=== PATIENT | male | born 1985 | race Caucasian/White ===

== ENCOUNTER → 2017-01-06 09:04 | Outpatient (CLI) | payer OTHER ==
[2017-01-06 09:16] LABS: BASOPHILS 0.2 % (0-2); EOSINOPHILS 2.7 % (0-7); HEMATOCRIT 27.7 % (42.0-54.0); HEMOGLOBIN 8.8 g/dL (13.5-17.5); IMMATURE GRANULOCYTES 0.5 % (0-5); LYMPHOCYTES 28.3 % (15-50); MCH 27.7 pg (26.0-34.0); MCHC 31.8 g/dL (31.0-37.0); MCV 87.1 fL (80.0-100.0); MEAN PLATELET VOLUME 9.9 fL (7.4-10.4); MONOCYTES 6.4 % (2-11); NEUTROPHILS 61.9 % (40-80); PLATELET COUNT 350 10x3/uL (130-400); RBC 3.18 10x6/uL (4.20-6.10); RDW 13.9 % (11.5-14.5); WBC 8.4 10x3/uL (4.8-10.8)
[2017-01-06 09:30] LABS: CALC OSMOLALITY 274 mosm/kg (275-300); CALCIUM 8.8 mg/dL (8.5-10.1); CARBON DIOXIDE 28.4 mmol/L (21.0-32.0); CHLORIDE - SERUM 102 mmol/L (98-107); CREATININE - SERUM 0.9 mg/dL (0.6-1.3); GLUCOSE 97 mg/dL (74-106); POTASSIUM - SERUM 4.3 mmol/L (3.5-5.1); SODIUM 138 mmol/L (136-145); UREA NITROGEN 11 mg/dL (7-18); VANCOMYCIN - TROUGH 12.4 ug/mL (10.0-20.0); eGFR NON AFRICAN AMERICAN > 90 mL/min (90-120)
== END | disposition home or self-care (01) ==
LOC: D.LABREF 09:04
PROVIDERS: Orthopaedic Surgery
DX: T84.51XA Infection and inflammatory reaction due to internal right hip prosthesis, initial encounter (principal)

== ENCOUNTER → 2017-01-12 10:07 | Outpatient (CLI) | payer OTHER ==
[2017-01-12 11:18] LABS: BASOPHILS 0.4 % (0-2); EOSINOPHILS 4.1 % (0-7); HEMATOCRIT 27.2 % (42.0-54.0); HEMOGLOBIN 8.4 g/dL (13.5-17.5); IMMATURE GRANULOCYTES 0.2 % (0-5); LYMPHOCYTES 28.8 % (15-50); MCH 26.1 pg (26.0-34.0); MCHC 30.9 g/dL (31.0-37.0); MCV 84.5 fL (80.0-100.0); MEAN PLATELET VOLUME 10.5 fL (7.4-10.4); MONOCYTES 6.5 % (2-11); PLATELET COUNT 334 10x3/uL (130-400); RBC 3.22 10x6/uL (4.20-6.10); RDW 14.4 % (11.5-14.5); WBC 4.9 10x3/uL (4.8-10.8)
[2017-01-12 11:34] LABS: CREATININE - SERUM 0.9 mg/dL (0.6-1.3); VANCOMYCIN - TROUGH 11.3 ug/mL (10.0-20.0)
== END | disposition home or self-care (01) ==
LOC: D.LABREF 10:07
PROVIDERS: Pediatrics
DX: M00.9 Pyogenic arthritis, unspecified (principal)

== ENCOUNTER → 2017-01-18 10:49 | Outpatient (CLI) | payer OTHER ==
[2017-01-18 11:42] LABS: BASOPHILS 0.2 % (0-2); EOSINOPHILS 4.7 % (0-7); HEMATOCRIT 28.4 % (42.0-54.0); HEMOGLOBIN 8.5 g/dL (13.5-17.5); IMMATURE GRANULOCYTES 0.2 % (0-5); MCH 24.6 pg (26.0-34.0); MCHC 29.9 g/dL (31.0-37.0); MCV 82.3 fL (80.0-100.0); MEAN PLATELET VOLUME 10.8 fL (7.4-10.4); MONOCYTES 9.1 % (2-11); NEUTROPHILS 68.8 % (40-80); RBC 3.45 10x6/uL (4.20-6.10); RDW 15.3 % (11.5-14.5); WBC 5.1 10x3/uL (4.8-10.8)
[2017-01-18 11:50] LABS: PLATELET COUNT 260 10x3/uL (130-400)
[2017-01-18 12:00] LABS: CREATININE - SERUM 0.9 mg/dL (0.6-1.3)
== END | disposition home or self-care (01) ==
LOC: D.LABREF 10:49
PROVIDERS: Pediatrics
DX: M00.9 Pyogenic arthritis, unspecified (principal)

== ENCOUNTER 2017-01-22 14:40 | Emergency (ER) | payer OTHER | END 2017-01-22 17:10 | disposition home or self-care (01) | LOC: D.ER 14:40 | DX: M25.551 Pain in right hip (principal); W01.0XXA Fall on same level from slipping, tripping and stumbling without subsequent striking against object, initial encounter; Y93.89 Activity, other specified; Y92.019 Unspecified place in single-family (private) house as the place of occurrence of the external cause; Z96.641 Presence of right artificial hip joint; F17.200 Nicotine dependence, unspecified, uncomplicated ==

== ENCOUNTER → 2017-01-23 10:12 | Outpatient (CLI) | payer OTHER ==
[2017-01-23 13:51] LABS: BASOPHILS 0.5 % (0-2); EOSINOPHILS 11.4 % (0-7); HEMATOCRIT 28.6 % (42.0-54.0); HEMOGLOBIN 8.7 g/dL (13.5-17.5); IMMATURE GRANULOCYTES 0.5 % (0-5); MCHC 30.4 g/dL (31.0-37.0); MEAN PLATELET VOLUME 10.5 fL (7.4-10.4); MONOCYTES 15.6 % (2-11); PLATELET COUNT 251 10x3/uL (130-400); RBC 3.62 10x6/uL (4.20-6.10); RDW 15.6 % (11.5-14.5); WBC 3.9 10x3/uL (4.8-10.8)
[2017-01-23 14:13] LABS: ANION GAP 15.9 mmol/L (8-16); CREATININE - SERUM 1.2 mg/dL (0.6-1.3); POTASSIUM - SERUM 3.9 mmol/L (3.5-5.1)
== END | disposition home or self-care (01) ==
LOC: D.LABREF 10:12
PROVIDERS: Pediatrics
DX: M00.9 Pyogenic arthritis, unspecified (principal)

== ENCOUNTER → 2017-01-30 09:51 | Outpatient (CLI) | payer OTHER ==
[2017-01-30 12:59] LABS: HEMATOCRIT 31.4 % (42.0-54.0); HEMOGLOBIN 9.6 g/dL (13.5-17.5); IMMATURE GRANULOCYTES 0.4 % (0-5); LYMPHOCYTES 31.2 % (15-50); MCH 23.3 pg (26.0-34.0); MCHC 30.6 g/dL (31.0-37.0); MCV 76.2 fL (80.0-100.0); MEAN PLATELET VOLUME 10.3 fL (7.4-10.4); MONOCYTES 12.8 % (2-11); NEUTROPHILS 45.6 % (40-80); PLATELET COUNT 379 10x3/uL (130-400); RBC 4.12 10x6/uL (4.20-6.10); WBC 4.8 10x3/uL (4.8-10.8)
[2017-01-30 13:07] LABS: CALC OSMOLALITY 278 mosm/kg (275-300); CALCIUM 8.7 mg/dL (8.5-10.1); CARBON DIOXIDE 26.3 mmol/L (21.0-32.0); CHLORIDE - SERUM 104 mmol/L (98-107); CREATININE - SERUM 0.9 mg/dL (0.6-1.3); GLUCOSE 104 mg/dL (74-106); POTASSIUM - SERUM 4.5 mmol/L (3.5-5.1); SODIUM 139 mmol/L (136-145); UREA NITROGEN 15 mg/dL (7-18); VANCOMYCIN - TROUGH 14.4 ug/mL (10.0-20.0); eGFR NON AFRICAN AMERICAN > 90 mL/min (90-120)
== END | disposition home or self-care (01) ==
LOC: D.LABREF 09:51
PROVIDERS: Pediatrics
DX: M00.9 Pyogenic arthritis, unspecified (principal)

== ENCOUNTER → 2017-02-06 09:19 | Outpatient (CLI) | payer OTHER ==
[2017-02-06 11:48] LABS: BASOPHILS 0.5 % (0-2); EOSINOPHILS 6.9 % (0-7); HEMATOCRIT 31.8 % (42.0-54.0); HEMOGLOBIN 9.5 g/dL (13.5-17.5); IMMATURE GRANULOCYTES 0.2 % (0-5); LYMPHOCYTES 28.3 % (15-50); MCH 22.7 pg (26.0-34.0); MCHC 29.9 g/dL (31.0-37.0); MCV 76.1 fL (80.0-100.0); MEAN PLATELET VOLUME 10.1 fL (7.4-10.4); MONOCYTES 10.9 % (2-11); NEUTROPHILS 53.2 % (40-80); PLATELET COUNT 452 10x3/uL (130-400); RBC 4.18 10x6/uL (4.20-6.10); RDW 15.9 % (11.5-14.5); WBC 5.5 10x3/uL (4.8-10.8)
[2017-02-06 11:58] LABS: VANCOMYCIN - TROUGH 15.1 ug/mL (10.0-20.0)
== END | disposition home or self-care (01) ==
LOC: D.LABREF 09:19
PROVIDERS: Pediatrics
DX: T84.59XA Infection and inflammatory reaction due to other internal joint prosthesis, initial encounter (principal)

== ENCOUNTER 2017-12-13 12:45 | Emergency (ER) | payer MEDICAID ==
[~2017-12-13] VITALS: Ht 185.4 cm; Wt 100.0 kg
[2017-12-13 13:15] VITALS: Ht 185.4 cm; Wt 100.0 kg
[2017-12-13] MEDS ORDERED: BACTRIM DS TABL1 TAB PO (14:20)
[2017-12-13] MEDS ORDERED: NORCO 7.5/325 T1 TA1 PO (14:20)
[2017-12-13 14:24] VITALS: BP 120/082
== END 2017-12-13 14:24 | disposition home or self-care (01) ==
LOC: D.ER 12:45
DX: L02.212 Cutaneous abscess of back [any part, except buttock and flank] (principal)